=== PATIENT | female | born 1950 | race Hispanic/Latino ===

== ENCOUNTER → 2019-04-21 | Outpatient (CLI) | payer OTHER, MEDICARE | END | disposition home or self-care (01) | LOC: SHCH 08:28 | PROVIDERS: ATTEND Internal Medicine Cardiovascular Disease | DX: Z09 Encounter for follow-up examination after completed treatment for conditions other than malignant neoplasm (principal); I82.811 Embolism and thrombosis of superficial veins of right lower extremity | CPT/HCPCS: 93971 ==

== ENCOUNTER → 2019-10-09 | Outpatient (CLI) | payer OTHER, MEDICARE ==
[~2019-10-09] VITALS: Ht 157.5 cm; Wt 63.5 kg
[~2019-10-09] MED LIST: REGADENOSON 0.4 MG/5 ML PF SYG IVP SCH
== END | disposition home or self-care (01) ==
LOC: SHCH 08:26
PROVIDERS: ATTEND Internal Medicine Cardiovascular Disease
DX: R07.9 Chest pain, unspecified (principal); R06.09 Other forms of dyspnea
CPT/HCPCS: 78452; 93017; 96374; A9500 ×2; J2785

== ENCOUNTER → 2020-05-24 | Outpatient (CLI) | payer OTHER, MEDICARE | END | disposition home or self-care (01) | LOC: RAH 14:21 | PROVIDERS: ATTEND Internal Medicine Cardiovascular Disease | DX: M79.622 Pain in left upper arm (principal); Z95.0 Presence of cardiac pacemaker | CPT/HCPCS: 73030; 93971 ==

== ENCOUNTER → 2021-05-17 | Outpatient (CLI) | payer OTHER, MEDICARE | END | disposition home or self-care (01) | LOC: SHCH 13:51 | PROVIDERS: ATTEND Internal Medicine Cardiovascular Disease | DX: I87.2 Venous insufficiency (chronic) (peripheral) (principal) | CPT/HCPCS: 93970 ==

== ENCOUNTER → 2022-08-16 | Outpatient (CLI) | payer OTHER, MEDICARE | END | disposition home or self-care (01) | LOC: SHCH 13:50 | PROVIDERS: ATTEND Internal Medicine Cardiovascular Disease | DX: I87.2 Venous insufficiency (chronic) (peripheral) (principal) | CPT/HCPCS: 93970 ==

== ENCOUNTER 2025-06-08 07:21 | Day surgery (SDC) | payer OTHER, MEDICARE ==
[2025-06-05 13:24] LABS: IMMATURE GRANULOCYTE ABSOLUTE 0.01 K/uL (0-1); NUCLEATED RED BLOOD CELLS 0.0 % (0.0-0.19); PLATELET COUNT (AUTO) 49 K/uL (130-400); RED BLOOD CELL COUNT(AUTO) 3.18 MIL/uL (4.00-5.50); RED CELL DISTRIBUTION WIDTH 16.5 % (11.0-15.5); WHITE BLOOD COUNT (AUTO) 4.8 K/uL (4.8-10.8)
[2025-06-05 13:33] LABS: INR 1.26 (0.85-1.15)
[2025-06-05 13:38] LABS: ASPARTATE AMINOTRANSFERASE 43.0 U/L (10-37); CREATININE 5.1 mg/dL (0.5-1.0); GLOMERULAR FILTR. RATE CALC 8.0 mL/min (>90); GLUCOSE,RANDOM 367.0 mg/dL (70-105); SODIUM SERUM 135.0 mmol/L (136-145); TOTAL PROTEIN, SERUM 6.1 g/dL (6.0-8.3); UREA NITROGEN, BLOOD 27.0 mg/dL (7-18)
--- NOTE | 2025-06-05 13:49 | EKG ---
[facility] Test Date: 2025-06-05 Test Time: 13:16:20 Pat Name: DONG BEAVER Department: [facility] Room: Gender: F Director Of [employer] Operations: 8749 : 1950 Requested By: MYRTLE NEWELL Order Number: [id number] Reading MD: Mandi Dowling Measurements Intervals [place] Rate: 64 P: 57 HI: 199 QRS: -81 QRSD: 160 T: 133 QT: 507 QTc: 523 Interpretive Statements Atrial-sensed ventricular-paced rhythm No previous ECG available for comparison Electronically Signed On 06-05-2025 14:34:51 CDT by Mandi Dowling Please click the below link to view image of tracing.
[2025-06-05 14:06] VITALS: BP 123/61; PULSE 67; RESP 18; TEMP 97.3
--- NOTE | 2025-06-05 16:30 | NUR ---
RE: LABS REPORTED HGB 9.9/HCT 30.8 AND PT 13.1/INR 1.26 TO MAJO/DR NEWELL. RECEIVED ORDERS TO REPEAT PT/INR ON DOS AND 2 UNITS PRBCS ON HOLD TO OR ON DOS.
[~2025-06-08] VITALS: Ht 154.9 cm; Wt 58.8 kg
[2025-06-08] VITALS (18 sets, daily range): BP systolic 103–130; BP diastolic 43–82; PULSE 61–68; RESP 15–18; TEMP 97.1–98.1
[~2025-06-08 07:21] MED LIST changes: +CHOL100020 PO; +FOLI1TAB85 PO; +GABA-529 PO; +HYDR25TA67 PO; +INSLAN SQ; +LACT-441 PO; +METO-391 PO; +PANT40TA54 PO; -REGADENOSON 0.4 MG/5 ML PF SYG IVP SCH
[2025-06-08] MEDS ORDERED: LIDOCAINE PF 100MG/5ML (2%) SYRINGE 5ML ONE (07:36)
[2025-06-08] MEDS ORDERED: MIDAZOLAM HCL 1 MG/ML 2ML VIAL ONE (07:37)
[2025-06-08 08:04] LABS: CREATININE 6.1 mg/dL (0.5-1.0); GLOMERULAR FILTR. RATE CALC 7.0 mL/min (>90); GLUCOSE,RANDOM 213.0 mg/dL (70-105); SODIUM SERUM 137.0 mmol/L (136-145); UREA NITROGEN, BLOOD 39.0 mg/dL (7-18)
[2025-06-08 08:06] LABS: INR 1.2 (0.85-1.15)
[2025-06-08] MEDS ORDERED: NEOSTIGMINE METHYLSULFATE 1MG/ML IV ONE (08:49)
[2025-06-08] MEDS ORDERED: GLYCOPYRROLATE 0.2 MG/ML 5 ML VIAL ONE (08:49)
[2025-06-08] MEDS: 0.9% NACL 500ML IV.SOLN 500 ML IV ONE (09:16)
[2025-06-08] MEDS ORDERED: SUGAMMADEX SODIUM 200 MG/2 ML VIAL IV ONE (10:20)
--- NOTE | 2025-06-08 11:35 | OP ---
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 Once general endotracheal anesthesia is achieved patient's right upper extremity is prepped and draped in sterile fashion. I then proceeded to create a transverse incision over top of the antecubital fossa at the level of the arteriovenous anastomosis and proceeded to dissect around the proximal portion of the fistula just distal to the anastomosis and obtained proximal control. I then proceeded to create a longitudinal incision with a 15 blade at the upper arm at the distal fistula past the aneurysms. Proceeded to dissect through the skin and subcutaneous tissue and obtain distal control. Heparin 5000 units were given. Once we had proximal and distal control I then proceeded to use the [place] 35 vascular load to divide the fistula proximally and distally. I then created a longitudinal incision over top of the aneurysms and then proceeded to use Bovie cautery to excise the aneurysm completely clipping it every branch from any collaterals that we identified. We then proceeded to obtain hemostasis at the surgical bed. I then proceeded to close his large incision where the aneurysm used to lay using 3-0 Vicryl running fashion. And leaving just the 2 incisions where we had exposure of the inflow and the outflow. I then proceeded to use a straight tunneler to tunnel from the proximal to the distal incision medially from our previous surgical bed and then through here proceeded to tunnel and 4-7 mm graft making sure that the dotted line stayed up. I then proceeded to excise the staple lines. And created the anastomosis on the arterial side end to end with 6-0 Prolene I did remove the 4 mm tapered portion and did a 7 mm anastomosis to the arterial side and the same on the venous and on the venous side as well and to end with 6-0 Prolene as well. Once both anastomosis were created we then confirmed that there was a good thrill throughout the graft. No bleeding was seen. All incisions were closed in 2 layers. With 3-0 Vicryl and then 4-0 Monocryl. The incision at the antecubital fossa on the upper arm we applied Dermabond over top. In the longitudinal incision over top of where the aneurysms used to be we applied a Picco dressing over top. Patient tolerated the procedure well all counts were correct x2 at the end of the procedure. MYRTLE NEWELL MD Jun 08, 2025 11:35
--- NOTE | 2025-06-08 12:20 | NUR ---
dressing: dressing to right upper arm dry/intact with no active bleeding present. picco in place, no redness/swelling noted to surrounding area.
--- NOTE | 2025-06-08 13:10 | NUR ---
dressing: dressing to right upper arm dry/intact with no active bleeding present. no redness/swelling noted to surrounding area. picco in place.
== END 2025-06-08 13:10 | disposition home or self-care (01) ==
LOC: DAH 07:21
PROVIDERS: ATTEND Student in an Organized Health Care Education/Training Program
DX: I72.1 Aneurysm of artery of upper extremity (principal); N18.6 End stage renal disease; E11.22 Type 2 diabetes mellitus with diabetic chronic kidney disease; I12.0 Hypertensive chronic kidney disease with stage 5 chronic kidney disease or end stage renal disease; K74.60 Unspecified cirrhosis of liver; Z90.710 Acquired absence of both cervix and uterus; Z98.890 Other specified postprocedural states; Z88.8 Allergy status to other drugs, medicaments and biological substances; Z80.8 Family history of malignant neoplasm of other organs or systems; Z79.899 Other long term (current) drug therapy
CPT/HCPCS: 80053; 85025; 85610 ×2; 85730 ×2; 86850; 86900; 86901; 36415 ×2; 93005; 36832; 86923; 80048; 82948 ×2; A6260; J1100; A4221; A4663; J7030; C1768; J7040; J3010; J3490 ×2; J2003; J2720; J2250; J2704; J2405; J2710; J2371; J0690 ×2; A4649 ×4; C1713 ×3; A4930; A4215; A4213; A4222; A4216; A4223 ×2; A4600